=== PATIENT | female | born 1990 | race Caucasian/White ===

== ENCOUNTER 2018-10-14 23:50 | Emergency (ER) | payer MEDICAID ==
[~2018-10-14] VITALS: Ht 152.4 cm; Wt 71.0 kg
[2018-10-14 23:54] VITALS: BP 123/75
[2018-10-15] MEDS ORDERED: CYCLOBENZAPRINE 10 MG TABLET ONE (00:20)
[2018-10-15] MEDS ORDERED: HYDROmorphone 2 MG/ML, 1ML ONE (00:20)
[2018-10-15] MEDS ORDERED: HYDROmorphone 2 MG/ML, 1ML IM ONE (00:30)
[2018-10-15] MEDS ORDERED: CYCLOBENZAPRINE 10 MG TABLET PO ONE (00:30)
== END 2018-10-15 01:40 | disposition home or self-care (01) ==
LOC: ED 10-15 00:21
DX: S22.089A Unspecified fracture of T11-T12 vertebra, initial encounter for closed fracture (principal); V89.1XXA Person injured in unspecified nonmotor-vehicle accident, nontraffic, initial encounter; Y93.89 Activity, other specified; Y92.89 Other specified places as the place of occurrence of the external cause; Y99.8 Other external cause status
CPT/HCPCS: 96372; 99283; J1170